=== PATIENT | male | born 1965 | race Hispanic/Latino ===

== ENCOUNTER 2018-10-16 19:09 | Emergency (ER) | payer OTHER ==
[2018-10-16] MEDS ORDERED: SULFAMETHOX-TMP DS 800/160 TAB ONE (19:48)
== END 2018-10-16 20:18 | disposition home or self-care (01) ==
LOC: EDH 19:09
DX: L02.414 Cutaneous abscess of left upper limb (principal); L03.114 Cellulitis of left upper limb; A49.02 Methicillin resistant Staphylococcus aureus infection, unspecified site
CPT/HCPCS: 10060